=== PATIENT | male | born 1955 | race Caucasian/White ===

== ENCOUNTER → 2022-05-21 | Outpatient (CLI) | payer MEDICARE, SELFPAY ==
[2022-05-21 17:41] LABS: Absolute Lymphocyte Count 1.06 X10^3/uL (0.83-4.51); Absolute Neutrophil Count 3.1 X10^3/uL (2.0-7.7); Basophil# 0.06 X10^3/uL; Basophil% 1.2 % (0-1); Eosinophil# 0.31 X10^3/uL; Hematocrit 43.6 % (40-54); Hemoglobin 14.6 g/dL (13.0-16.5); Lymphocyte # 1.06 X10^3/ul (0.83-4.51); Lymphocyte % 20.4 % (19-41); Mean Corp Hgb Conc 33.5 g/dL (32-36); Mean Corpuscular Hgb 32.3 pg (27.0-32.0); Mean Corpuscular Volume 96.5 fL (80-94); Mean Platelet Vol. 10.3 fl (6.2-12.0); Monocyte# 0.66 X10^3/uL; Monocyte% 12.7 % (0-10); NRBC Flagged by Analyzer 0 % (0-5); Neutrophil # 3.09 X10^3/uL (2.7-7.7); Neutrophil % 59.3 % (47-70); Platelet Count 296 K/mm3 (150-450); RBC Distribution Width CV 13.2 % (11.6-14.6); RBC Distribution Width SD 47.4 fl (35.1-43.9); Red Blood Count 4.52 M/mm3 (4.6-6.2); White Blood Count 5.2 K/mm3 (4.4-11.0)
[2022-05-21 18:10] LABS: AST(SGOT) 20 U/L (15-37); Alanine Aminotransfer ALT/SGPT 25 U/L (16-61); Albumin, Serum 3.6 g/dL (3.2-5.0); Alkaline Phosphatase 97 U/L (45-117); Anion Gap 3 (5-15); BUN 20 mg/dL (7-18); BUN/Creat Ratio 19.4 RATIO (10-20); Calcium,Total 8.8 mg/dL (8.5-10.1); Chloride 107 mmol/L (98-107); Cholesterol 238 mg/dL (200); Creatinine, Serum 1.03 mg/dL (0.70-1.30); EST Glomerular Filtration Rate 76 mL/min (>60); Est Glom Filt Rate - Afr Amer 92 mL/min (>60); Globulin 3.6 g/dL (2.2-4.2); Glucose 96 mg/dL (74-106); High Density Lipoprotein 46 mg/dL; PSA,Total - Annual Screen 0.93 ng/mL (0.00-4.00); Potassium 4.2 mmol/L (3.5-5.1); Protein, Total 7.2 g/dL (6.4-8.2); Sodium Level 138 mmol/L (136-145); Thyroid Stim Hormone (TSH) 1.91 uIU/mL (0.358-3.74); Triglycerides 280 mg/dL; Very Low Density Lipoprotein 56 mg/dL (5-40)
== END | disposition home or self-care (01) ==
PROVIDERS: PCP Family Medicine; Referring Provider Family Medicine; Visit Provider Family Medicine
DX: I10 Essential (primary) hypertension (principal); Z12.5 Encounter for screening for malignant neoplasm of prostate
CPT/HCPCS: 36415; 80053; 80061; 84153; 84443; 85025; G0103

== ENCOUNTER → 2022-06-27 | Outpatient (CLI) | payer MEDICARE, SELFPAY ==
--- NOTE | 2022-06-27 07:29 | CT_ITS ---
STUDY: LOW DOSE CT LUNG CANCER SCREENING REASON FOR EXAM: Male, 67 years old. Former smoker. Patient smoked 1 pack per day for 25 years. Hypertension. RADIATION DOSAGE (If Supplied By Facility): CTDIvol = ( 2.01 ) mGy, DLP = ( 76.50 ) mGycm TECHNIQUE: No contrast was administered. Low dose technique was utilized (average mAS-38 and kVp 120). 1.25 mm axial source images with a slice interval of 1.25-mm were reconstructed in lung windows. 2.5 mm axial source images with a slice interval of 2.5-mm were reconstructed in lung windows. 5.0 mm axial source images with a slice interval of 5.0-mm were reconstructed in soft tissue windows. COMPARISON: None. NODULES: No suspicious nodules are seen. Emphysema: Hyperinflation. Diffuse emphysematous changes with bullous formation more prominent in the upper lobes. Right apical scarring. Focal scarring in the medial aspect of the right middle lobe. Endobronchial lesion: None Aorta: Atherosclerotic calcific plaques. CORONARY ARTERIES: Coronary artery calcification is seen. Heart: Unremarkable Pulmonary artery: Unremarkable Mediastinal nodes: Small mediastinal lymph nodes. Other chest and abdominal findings: Degenerative changes of the thoracic spine. CT/Low Dose CT Lung Screening IMPRESSION: Lung-RADS category 2 - Continue annual screening with LDCT in 12 months. IMPORTANT NOTES FOR USE: ACR Lung-RADS Version 1.1 Assessment Categories Release Date: 2018 Category: Coded 0-4 bases on nodule(s) with highest degree of suspicion. Negative screen is defined as categories 1 and 2; a positive screen is defined as categories 3 and 4. Category 3 and 4A nodules that are unchanged on interval CT should be coded as category 2, and individuals returned to screening in 12 months. Category 4X: Category 3 or 4 nodules with additional imaging findings that increase the suspicion of lung cancer, such as spiculation, GGN that doubles in size in 1 year, enlarged lymph notes, etc. Category Modifiers: S (significant finding unrelated to lung cancer) Electronically Signed: Duran Cali MD at 8:54 EDT ,
== END | disposition home or self-care (01) ==
LOC: CT 07:28
PROVIDERS: PCP Family Medicine; Referring Provider Family Medicine; Visit Provider Family Medicine
DX: Z87.891 Personal history of nicotine dependence (principal)
CPT/HCPCS: 71271

== ENCOUNTER → 2023-03-10 | Outpatient (CLI) | payer MEDICARE, SELFPAY ==
[2023-03-10 08:44] LABS: Bacteria 0 SEEN /hpf (None Seen); Mucous, Urine 0 SEEN /hpf (<or=2+); Red Blood Cells-Urine 0 SEEN /hpf (0-5); Squamous Epithelial Cells - UA 0 SEEN /hpf (0-5); White Blood Cells 0 SEEN /hpf (0-5)
[2023-03-10 10:28] LABS: Color, Urine Yellow (Yellow); Glucose, Dipstick Normal (Normal); Ketone-Dipstick 5 mg/dl (Negative); Leukocyte Esterase-Dipstick 25 /ul (Negative); Nitrite-Dipstick Negative (Negative); Occult Blood-Urine Negative /ul (Negative); Protein-Dipstick 15 mg/dl (Negative); Specific Gravity, Urine 1.025 (1.002-1.030); Urine Clarity Clear (Clear); Urine Urobilinogen Normal (Normal)
[2023-03-10 10:29] LABS: Absolute Lymphocyte Count 1.23 X10^3/uL (0.83-4.51); Absolute Neutrophil Count 2.2 X10^3/uL (2.0-7.7); Basophil# 0.07 X10^3/uL; Basophil% 1.6 % (0-1); Eosinophil# 0.29 X10^3/uL; Eosinophils% 6.5 % (0-5); Hematocrit 46.7 % (40-54); Hemoglobin 15.6 g/dL (13.0-16.5); Lymphocyte # 1.23 X10^3/ul (0.83-4.51); Lymphocyte % 27.8 % (19-41); Mean Corp Hgb Conc 33.4 g/dL (32-36); Mean Corpuscular Hgb 31.8 pg (27.0-32.0); Mean Corpuscular Volume 95.3 fL (80-94); Mean Platelet Vol. 10.1 fl (6.2-12.0); Monocyte% 13.5 % (0-10); NRBC Flagged by Analyzer 0 % (0-5); Neutrophil # 2.23 X10^3/uL (2.7-7.7); Neutrophil % 50.4 % (47-70); Platelet Count 354 K/mm3 (150-450); RBC Distribution Width CV 12.3 % (11.6-14.6); RBC Distribution Width SD 42.8 fl (35.1-43.9); White Blood Count 4.4 K/mm3 (4.4-11.0)
[2023-03-10 10:30] LABS: Urine Bilirubin Dipstick 1 mg/dL (Negative)
[2023-03-10 11:18] LABS: AST(SGOT) 30 U/L (15-37); Alanine Aminotransfer ALT/SGPT 40 U/L (16-61); Albumin, Serum 3.9 g/dL (3.2-5.0); Alkaline Phosphatase 107 U/L (45-117); Anion Gap 7 (5-15); BUN 19 mg/dL (7-18); BUN/Creat Ratio 16.7 RATIO (10-20); Calcium,Total 9.9 mg/dL (8.5-10.1); Chloride 99 mmol/L (98-107); Cholesterol 259 mg/dL (200); Creatinine, Serum 1.14 mg/dL (0.70-1.30); EST Glomerular Filtration Rate 68 mL/min (>60); Est Glom Filt Rate - Afr Amer 82 mL/min (>60); Globulin 3.9 g/dL (2.2-4.2); Glucose 131 mg/dL (74-106); High Density Lipoprotein 45 mg/dL; Potassium 3.9 mmol/L (3.5-5.1); Protein, Total 7.8 g/dL (6.4-8.2); Sodium Level 135 mmol/L (136-145); Triglycerides 168 mg/dL; Very Low Density Lipoprotein 34 mg/dL (5-40)
[2023-03-10 16:03] LABS: Hemoglobin A1c 5.9 % (3.8-5.6)
== END | disposition home or self-care (01) ==
LOC: MFPLAB 08:40
PROVIDERS: PCP Family Medicine; Referring Provider Family Medicine; Visit Provider Family Medicine
DX: R73.09 Other abnormal glucose (principal); E78.5 Hyperlipidemia, unspecified
CPT/HCPCS: 36415; 80053; 80061; 81001; 83036; 85025

== ENCOUNTER → 2023-04-10 | Outpatient (CLI) | payer MEDICARE, SELFPAY ==
--- NOTE | 2023-04-10 | MASS_PTH ---
PATIENT: JENNIFER SANDERS LOC: [facility] U#:[id number] AGE/SX: 68/M ROOM: RE04/10/[address]: Dr. David Laurent MD : 1955 BED: DIS: 04/10/2023 SPEC #: [id number] RECD: 04/10/23 11:22 STATUS: KAROLINE RELeanne #: [id number] JOSHUA: 04/10/23 00:[address]: David Laurent DEPT: SURGICAL PATHOLOGY RECD BY: Dell Pena ENTERED: 04/10/23 12:09 SP TYPE: Mass OTHR DR: Dr. Ernie Gomez MD Tissues: Skin of neck, NOS Procedures: Surgery Specimen Level IV HEADER OPERATION: Incision and drainage of right posterior neck mass PRE-OP DIAGNOSIS: Right posterior neck mass TISSUE SUBMITTED: Right posterior neck tissue MICROSCOPIC DIAGNOSIS Right posterior neck mass, biopsy: Fragments of benign epithelial inclusion cyst. Skin with minimal chronic inflammation. AM:raulito 04/13/2023 MICROSCOPIC DESCRIPTION Slides are reviewed. GROSS DESCRIPTION Received in fixative is one container labeled with the patient's name and designated right posterior neck tissue. The specimen consists of multiple irregular fragments of skin mixed with pink-red soft tissue that in aggregate measure 1.5 x 1.5 x 0.3 cm. The specimen is totally submitted in one cassette. / SJ:raulito 04/10/2023 TC:5 CPT: [id number]
== END | disposition home or self-care (01) ==
LOC: LABSPEC 11:38
PROVIDERS: PCP Family Medicine; Visit Provider Surgery
DX: N42.83 Cyst of prostate (principal)
CPT/HCPCS: 88305

== ENCOUNTER 2023-04-22 16:08 | Outpatient (CLI) | payer MEDICARE, SELFPAY ==
--- NOTE | 2023-04-22 | CYST_PTH ---
PATIENT: JENNIFER SANDERS LOC: [facility] U#:[id number] AGE/SX: 68/M ROOM: RE04/22/[address]: Dr. David Laurent MD : 1955 BED: DIS: 04/22/2023 SPEC #: [id number] RECD: 04/23/23 08:59 STATUS: KAROLINE RELeanne #: [id number] JOSHUA: 04/22/23 00:[address]: David Laurent DEPT: SURGICAL PATHOLOGY RECD BY: Magnus Padgett ENTERED: 04/23/23 09:00 SP TYPE: Cyst OTHR DR: Dr. Ernie Gomez MD Tissues: CYST Procedures: Gen Path Consultation (on slides) Surgery Specimen Level IV HEADER OPERATION: Excision of cyst on back of neck PRE-OP DIAGNOSIS: Cyst on back of neck TISSUE SUBMITTED: Cyst on back of neck MICROSCOPIC DIAGNOSIS Skin lesion of back, excision: Hidradenoma with cystic component. AM:raulito 04/29/2023 COMMENT Case is seen in consultation with Dr. Hatfield of [facility]. Complete consultative report is in EMR. Case has been reviewed in consultation with Dr. Gamboa who concurs with the above diagnosis. IDC:[id number] MICROSCOPIC DESCRIPTION Slides are reviewed. GROSS DESCRIPTION Received in fixative is one container labeled with the patient's name and designated cyst. The specimen consists of a romero-white skin ellipse measuring 4.5 x 2.0 cm and up to 1.0 cm in thickness. The skin surface shows a focal area of ulceration. Sections reveal a pinkish-romero lesion in the subcutaneous tissue measuring 1.0 cm in greatest dimension. The entire specimen is submitted in four cassettes. / BENITO:raulito 04/23/2023 TC:1 CPT: [id number]
== END 2023-04-22 23:59 | disposition home or self-care (01) ==
LOC: LABSPEC 16:09
PROVIDERS: PCP Family Medicine; Referring Provider Surgery; Visit Provider Surgery
DX: D23.5 Other benign neoplasm of skin of trunk (principal); L72.9 Follicular cyst of the skin and subcutaneous tissue, unspecified
CPT/HCPCS: 88304; 88305; 88325

== ENCOUNTER 2023-06-15 09:00 | Emergency (ER) | payer MEDICARE, SELFPAY ==
[2023-06-15] VITALS (7 sets, daily range): BP systolic 150–177; BP diastolic 90–102; PULSE 66–80; RESP 13–16; TEMP 36.4–36.6; O2SAT 95–98; BMI 24.0; BMI 25.6
--- NOTE | 2023-06-15 09:02 | CT_ITS ---
We are attempting to reach an attending provider to discuss findings. An addendum with communication details will be sent when the communication is complete. INDICATION: Neuro deficit, acute, stroke suspected EXAMINATION: CT BRAIN WITH CONTRAST TECHNIQUE: Noncontrast axial images were obtained of the brain. Subsequently, routine carotid CT angiogram protocol was performed without and with IV contrast. In addition, images were obtained of the [place]. NASCET criteria using the distal ICAs for comparison were used for evaluation of stenoses. 3D reconstructions were reviewed. A radiation dose optimization technique was used for this scan. IV Contrast dosage and agent: COMPARISON: Noncontrast CT scan of the brain of the same day. FINDINGS: --CTA NECK: AORTIC ARCH AND BRANCHES: Atherosclerotic calcifications of the aortic arch. RIGHT CCA: Mild atherosclerotic calcifications in the region of the bulb. No significant stenosis. RIGHT ICA: No occlusion, significant stenosis or dissection. LEFT CCA: Occluded left common carotid artery just distal to its origin by large thrombus. LEFT ICA: Occluded. RIGHT VERTEBRAL ARTERY: No occlusion, significant stenosis or dissection. LEFT VERTEBRAL ARTERY: No occlusion, significant stenosis or dissection. NECK SOFT TISSUES: Unremarkable. --CTA HEAD: --Anterior circulation: ICAs: Patent right internal carotid artery. Occluded left internal carotid artery ACAs: Patent bilateral A1 and A2 segments. ACOM: Present. MCAs: No significant stenosis at the visualized segments. --Posterior circulation: PCOMs: Patent. memorial counselor: Small left anterior cerebral artery. Unremarkable right side. BASILAR ARTERY: No significant stenosis. VERTEBRAL ARTERIES: Dominant right vertebral artery and small left vertebral artery. No evidence of intracranial aneurysm or vascular malformation. CT/STROKE CTA Head AND Neck W/Con IMPRESSION: 1. 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 2. Reconstituted left middle and anterior cerebral arteries. 3. Patent bilateral vertebral arteries. Electronically Signed: Krzysztof Bautista MD at 9:58 EDT ,
--- NOTE | 2023-06-15 09:02 | CT_ITS ---
INDICATION: Neuro deficit, acute, stroke suspected EXAMINATION: CT BRAIN - flaccid right side concerning for acute bleed. TECHNIQUE: Multiple axial images were obtained of the head without intravenous contrast. A radiation dose optimization technique was used for this scan. IV Contrast dosage and agent: None. RADIATION DOSAGE (If Supplied By Facility): CTDIvol = ( ) mGy, DLP = ( ) mGycm COMPARISON: No prior examinations are available for comparison. FINDINGS: BRAIN PARENCHYMA: No intra- or extra-axial hemorrhage. No evidence of acute infarct. No intracranial mass or mass effect. There is preservation of the ware/white matter interface. Posterior fossa structures are unremarkable. CSF SPACES: Mild prominence of ventricles and cortical sulci. No hydrocephalus. Basal cisterns are patent. CALVARIUM, SKULL BASE, PARANASAL SINUSES AND MASTOID AIR CELLS: Clear. No discrete lytic or blastic abnormalities. ORBITS: Globes are grossly intact. Status post bilateral cataract surgery. ASPECTS Score for Acute Strokes: 10 CT/STROKE Brain/Head without Cont IMPRESSION: 1. No acute intracranial process. 2. If symptoms persist, MRI of the brain is recommended. N.B. : The above Results were Read Back by Krzysztof Bautista MD to Chilango Cyr MD, and understanding confirmed on 06/15/2023 09:22:09 (ET). Electronically Signed: Krzysztof Bautista MD at 9:23 EDT ,
--- NOTE | 2023-06-15 09:06 | NURSING ---
758 STROKE ALERT CALLED
[2023-06-15 09:20] LABS: Absolute Lymphocyte Count 1.39 X10^3/uL (0.83-4.51); Absolute Neutrophil Count 8.7 X10^3/uL (2.0-7.7); Basophil# 0.07 X10^3/uL; Basophil% 0.6 % (0-1); Eosinophil# 0.03 X10^3/uL; Eosinophils% 0.3 % (0-5); Hemoglobin 17.3 g/dL (13.0-16.5); Lymphocyte # 1.39 X10^3/ul (0.83-4.51); Lymphocyte % 12.2 % (19-41); Mean Corp Hgb Conc 33.3 g/dL (32-36); Mean Corpuscular Volume 99.2 fL (80-94); Mean Platelet Vol. 10.3 fl (6.2-12.0); Monocyte# 1.16 X10^3/uL; Monocyte% 10.2 % (0-10); NRBC Flagged by Analyzer 0 % (0-5); Neutrophil # 8.71 X10^3/uL (2.7-7.7); Neutrophil % 76.3 % (47-70); Platelet Count 290 K/mm3 (150-450); RBC Distribution Width CV 13.8 % (11.6-14.6); RBC Distribution Width SD 51.1 fl (35.1-43.9); Red Blood Count 5.24 M/mm3 (4.6-6.2); White Blood Count 11.4 K/mm3 (4.4-11.0)
--- NOTE | 2023-06-15 09:20 | NURSING ---
FAXED FACESHEET TO [facility]
--- NOTE | 2023-06-15 09:22 | NURSING ---
NO OLD EKGS
--- NOTE | 2023-06-15 09:23 | EDS_ITS ---
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 He was at a pool libertarian yesterday. He had some type of symptoms at 1400. They resolved by 1600. They left at 1600. He arrives here unable to move his right side. Eyes are deviated to the left. He has trouble expressing himself. He has altered mental status. History is very. According to person in the room he has not seen a doctor in 40 years. He recently saw Was placed on blood pressure medication. Person in the room states when he called at 7:00 he did not answer so he went over to check on him. Prior similar symptoms: No Recent Illness/Hospitalization: No PFSH PFSH Allergy/AdvReac Type Severity Reaction Status Date / Time No Known Allergies Allergy Verified 06/15/23 09:32 Social History Smoking Status: Former smoker ROS ROS ED Review of Systems ROS Unobtainable: due to mental status EXAM Physical Exam Const Vital Signs: 06/15/23 09:02 06/15/23 09:26 06/15/23 09:34 Temperature 97.6 F L 97.8 F Temperature Source Oral Oral Pulse Rate 66 80 Respiratory Rate 16 15 Blood Pressure 158/102 H 150/97 H 150/97 H Blood Pressure Mean 120 114 Blood Pressure Source Blood Pressure Position Pulse Ox 98 95 Oxygen Delivery Method Room Air Room Air 06/15/23 09:02 06/15/23 09:38 06/15/23 09:49 Temperature Temperature Source Pulse Rate 78 77 Respiratory Rate 14 16 Blood Pressure 150/97 H 177/93 H 177/93 H Blood Pressure Mean 114 121 121 Blood Pressure Source Monitor Blood Pressure Position Supine Pulse Ox 96 96 Oxygen Delivery Method Room Air Room Air 06/15/23 09:49 06/15/23 09:56 06/15/23 10:00 Temperature 97.7 F L Temperature Source Oral Pulse Rate 72 75 Respiratory Rate 13 16 Blood Pressure 177/93 H 157/90 H Blood Pressure Mean 121 112 Blood Pressure Source Blood Pressure Position Pulse Ox 95 95 Oxygen Delivery Method Room Air Room Air Room Air 06/15/23 10:03 Temperature Temperature Source Pulse Rate 72 Respiratory Rate 14 Blood Pressure 157/90 H Blood Pressure Mean 112 Blood Pressure Source Blood Pressure Position Pulse Ox 98 Oxygen Delivery Method Room Air Positive well nourished and well developed General Appearance ED: well developed and NAD HEENT Reports TM's clear and dry mucous membranes atraumatic Tympanic Membrane ED: Yes TM's clear Mouth ED: Yes dry mucous membranes Mouth: dry mucous membranes Eyes Eyes Narrative: Nipples are pinpoint. Eyes are deviated to the left. General Eye ED: Negative for pale conjunctiva or scleral icterus Chest Wall inspection of chest normal and palpation of chest normal Resp normal respiratory effort and clear to auscultation bilaterally Cardio no murmurs Rate: regular rate Rhythm: regular rhythm Heart Sounds: S1 normal and S2 normal GI normal to inspection, nondistended, normoactive bowel sounds, soft to palpation, non-tender, non-distended and no masses GI Narrative: Well-healed surgical scar noted. Extremity normal to inspection Neuro No oriented x3, No CN's II-XII intact bilaterally and No no sensory deficits noted [place] Coma Scale: document GCS findings Spontaneous Localizes to Pain Confused 13 Sensorium / Orientation: Negative for alert Speech: Negative for speech normal Gait (Neuro): Negative for normal gait Motor Exam: Negative for strength 5/5 throughout Skin no wounds Skin Narrative: Patient is tanned. General Skin Exam: Negative for jaundice Lesions: no lesions Rashes: no rashes NIHSS NIHSS Initial: 1a Level of Consciousness: 1 1b LOC Questions (Score 2 if aphasic/stupor): 2 1c LOC Commands (Only score 1st attempt): 1 2 Best Gaze (If aphasic, use reflexive mvmts.): 2 3 Visual: 0 (Blinks to threat) 4 Facial Palsy: 1 5 Motor Arm Right (UN = amputation/fusion): 3 5 Motor Arm Left: 0 6 Motor Leg Right: 4 6 Motor Leg Left: 0 7 Limb ataxia (Only + if out of proportion): UN 8 Sensory (Aphasia/stupor=0 or 1, coma=2): 1 9 Best Language: 2 10 Dysarthria (mute, coma=2, intubated=UN): 1 11 Extinction and Inattention (only scored if +): 0 Total Score: 18 MDM MDM MDM Narrative Medical decision making narrative: The stroke neurologist [facility] recommended tenecteplase. He was able to determine that patient was last seen well this morning at 0845 which is different than what they initially told me. Patient went with the people in the room to [place] . He was able to walk and talk. They are adamant that his symptoms started a 8: 40 5 AM. Once I was informed by radiologist that the patient has a large clot in his carotid artery [facility] was asked to contact [facility] for their own review. Lab Data Attestation: I reviewed the patient's lab results. Labs: Laboratory Results - last 24 hr 06/15/23 06/15/23 09:12 09:14 WBC 11.4 H RBC 5.24 Hgb 17.3 H Hct 52.0 MCV 99.2 H MCH 33.0 H MCHC 33.3 RDW Std Deviation 51.1 H RDW Coeff of Donya 13.8 Plt Count 290 MPV 10.3 Immature Gran % (Auto) 0.400 Neut % (Auto) 76.3 H Lymph % (Auto) 12.2 L Anson % (Auto) 10.2 H Eos % (Auto) 0.3 Baso % (Auto) 0.6 Absolute Neuts (auto) 8.7 H Absolute Lymphs (auto) 1.39 Nucleated RBC % 0 PT 12.7 INR 1.0 APTT 24.2 Sodium 136 Potassium 3.8 Chloride 103 Carbon Dioxide 26.0 Anion Gap 7 BUN 25 H Creatinine 1.41 H Estim Creat Clear Calc 51.05 Est GFR (MDRD) Af Amer 64 Est GFR (MDRD) Non-Af 53 L BUN/Creatinine Ratio 17.7 Glucose 130 H Calcium 9.1 Troponin I High Sens 1397 H* POC Glucose 147 H Radiography Chest X-Ray - ED: Read by Radiologist (CT of the head without contrast revealed no acute process.) Diagnostic Testing: Clinical Impression(s) from Imaging Studies Brain CT 06/15/23 09:02 IMPRESSION: 1. No acute intracranial process. 2. If symptoms persist, MRI of the brain is recommended. N.B. : The above Results were Read Back by Krzysztof Bautista MD to Chilango Cyr MD, and understanding confirmed on 06/15/2023 09:22:09 (ET). Electronically Signed: Krzysztof Bautista MD at 9:23 EDT , ADDENDUM: 06/15/23 0930 IMPRESSION: 1. No acute intracranial process. 2. If symptoms persist, MRI of the brain is recommended. N.B. : The above Results were Read Back by Krzysztof Bautista MD to Chilango Cyr MD, and understanding confirmed on 06/15/2023 09:22:09 (ET). Electronically Signed: Krzysztof Bautista MD at 9:23 EDT , Head/Neck CTA 06/15/23 09:02 IMPRESSION: 1. 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 2. Reconstituted left middle and anterior cerebral arteries. 3. Patent bilateral vertebral arteries. Electronically Signed: Krzysztof Bautista MD at 9:58 EDT , ADDENDUM: 06/15/23 1012 IMPRESSION: 1. 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 2. Reconstituted left middle and anterior cerebral arteries. 3. Patent bilateral vertebral arteries. N.B. : The above Results were Read Back by Krzysztof Batuista MD to Ger Kee MD, and understanding confirmed on 06/15/2023 10:05:21 (ET). Electronically Signed: Krzysztof Bautista MD at 9:58 EDT , EKG Initial EKG: Attestation: I personally reviewed and interpreted this EKG as follows: Interpretation: Sinus Rhythm (Rate is 68. PA interval 268 ms. Cures duration 82 ms. QT is prolonged at 592 ms. Perry is normal. There is evidence of LVH with symmetrically inverted T waves in the anterior lateral leads.) Management Discussion w/another healthcare provider: [employer] (Dr. Grande [facility] neurologist.), Radiologist and Pharmacist Stroke Documentation Questions Stroke Team Activated: Yes Reviewed Inclusion/Exclusion criteria: Yes Was Patient considered for Endovascular Intervention?: Yes-CTA +,PT transferred for further eval of endovascular intervention IV Thrombolytic Administered: Yes No contraindications from thrombolytic administration: Yes Risks, Benefits, Alternatives Discussed: Yes (Per [facility] neurology) Critical Care Time Critical Care Time: Yes Critical care time (excluding procedures): 30-74 minutes (33), Including time spent: (History, physical, documentation, discussion with python consultant and radiologist), Discussing w/Patient &/or Family/Director Patient Accounting, Discussing w/Consultants and Arranging Admission or Transfer Discharge Plan Triage Chief Complaint: Stroke Alert ED Provider: Chilango Cyr Dx/Rx/DC Orders Clinical Impression: LVH (left ventricular hypertrophy) due to hypertensive disease, Prolonged Q-T interval on ECG, Acute ischemic left MCA stroke, Hypertension Primary Care Provider: Ernie Gomez Referrals: Ernie Gomez MD [Primary Care Provider] - Disposition Disposition: Acute Care Hospital Discharge Location: [facility] Discharge Date/Time: 06/15/23 10:17
[2023-06-15 09:28] LABS: Partial Thromboplast Time 24.2 Seconds (24.1-36.2); Prothrombin Time (Protime)PT. 12.7 SECONDS (11.7-14.9)
[2023-06-15 09:34] LABS: Bedside Glucose 147 mg/dL (74-106)
[2023-06-15] MEDS: TENECTEPLASE 2750.4 MG IV (09:34)
[2023-06-15 10:08] LABS: Anion Gap 7 (5-15); BUN 25 mg/dL (7-18); BUN/Creat Ratio 17.7 RATIO (10-20); Calcium,Total 9.1 mg/dL (8.5-10.1); Chloride 103 mmol/L (98-107); Creatinine, Serum 1.41 mg/dL (0.70-1.30); EST Glomerular Filtration Rate 53 mL/min (>60); Est Glom Filt Rate - Afr Amer 64 mL/min (>60); Estimated Creatinine Clearance 51.05 ml/min; Glucose 130 mg/dL (74-106); Potassium 3.8 mmol/L (3.5-5.1); Sodium Level 136 mmol/L (136-145); Troponin-I HS 1397 pg/mL (3.0-78.0)
--- NOTE | 2023-06-15 10:14 | ED.RN ---
Report to Flight team.
== END 2023-06-15 10:17 | disposition short-term general hospital (02) ==
PROVIDERS: Emergency Provider Emergency Medicine; PCP Family Medicine; Visit Provider Emergency Medicine
DX: I63.512 Cerebral infarction due to unspecified occlusion or stenosis of left middle cerebral artery (principal); G81.91 Hemiplegia, unspecified affecting right dominant side; I65.22 Occlusion and stenosis of left carotid artery; R94.31 Abnormal electrocardiogram [ECG] [EKG]; I10 Essential (primary) hypertension; I51.7 Cardiomegaly; R47.81 Slurred speech; R47.01 Aphasia; R26.89 Other abnormalities of gait and mobility; R29.810 Facial weakness; R29.718 NIHSS score 18; Z87.891 Personal history of nicotine dependence
CPT/HCPCS: 70450; 70496; 70498; 80048; 82962; 84484; 85025; 85610; 85730; 93005; 96374; 99282; J3101; Q9967; A4216